=== PATIENT | male | born 1935 | race Caucasian/White ===

== ENCOUNTER 2017-12-28 12:37 | Observation (INO) | payer OTHER ==
[~2017-12-28] VITALS: Ht 157.5 cm; Wt 72.1 kg
[~2017-12-28 12:37] MED LIST: LEVO.1 PO
[2017-12-28 12:42] VITALS: BP 83/53; PULSE 101; RESP 18; TEMP 98.6; O2SAT 94
[2017-12-28] MEDS ORDERED: SODIUM CHLOR 0.9% 1000 ML INJ 1,000 ML IV SCH (13:03)
[2017-12-28] MEDS ORDERED: TAMS0.4C4 (13:04)
[2017-12-28 13:07] VITALS: BP 117/78; PULSE 92; RESP 16; O2SAT 96
--- NOTE | 2017-12-28 13:19 | PD ---
HPI Chief Complaint: GI Complaint Time Seen by Provider: 12:55 Travel History International Travel<30 days: No Contact w/Intl Traveler<30days: No Traveled to known affect area: No History of Present Illness HPI Patient presents to the emergency department with diarrhea 15 days. States that he took one Imodium last week but that did not help. Doctor is on vacation at the primary care appointment tomorrow at noon. States that he had diffuse abdominal pain and bright red blood in stool 2 approximately one half hour ago. New onset. Denies fever, chills, nausea, vomiting, chest pain, hematuria, shortness of breath, dizziness, but does report feeling weak at rest and on exertion. He denies taking aspirin or blood thinner, but states that he takes 200 mg ibuprofen once a week with the last dose yesterday. PFSH Past Medical History Medical History: Denies Significant Hx Diminished Hearing: No Immunizations Current: Yes Tetanus Vaccination: < 5 Years Past Surgical History Appendectomy: Yes Tonsillectomy: Yes Other Surgery: Yes ("NOT TO HAVE KIDS") Social History Alcohol Use: Yes (Occasional) Tobacco Use: No Substance Use: No Allergies-Medications (Allergen,Severity, Reaction): Coded Allergies: codeine (Unverified Allergy, Intermediate, Pt unsure of reaction, 12/28/17) Reported Meds & Prescriptions Reported Meds & Active Scripts Active Reported Tamsulosin (Tamsulosin HCl) 0.4 Mg Cap 0.4 Mg HS Synthroid (Levothyroxine Sodium) 100 Mcg Tab 100 Mcg PO DAILY Review of Systems Except as stated in HPI: all other systems reviewed are Neg Physical Exam Narrative GENERAL: Acute distress. SKIN: Focused skin assessment warm/dry. HEAD: Atraumatic. Normocephalic. EYES: Pupils equal and round. No scleral icterus. No injection or drainage. ENT: No nasal bleeding or discharge. Mucous membranes pink and moist. NECK: Trachea midline. No JVD. CARDIOVASCULAR: Regular rate and rhythm. No murmur appreciated. RESPIRATORY: No accessory muscle use. Clear to auscultation. Breath sounds equal bilaterally. GASTROINTESTINAL: Abdomen soft, non-tender, nondistended. Hepatic and splenic margins not palpable. Rectal:No stool, the patient did bring sample of his bloody stool with him which showed brown stool with bright red blood MUSCULOSKELETAL: No obvious deformities. No clubbing. No cyanosis. No edema. NEUROLOGICAL: Awake and alert. No obvious cranial nerve deficits. Motor grossly within normal limits. Normal speech. PSYCHIATRIC: Appropriate mood and affect; insight and judgment normal. Data Data Last Documented VS Vital Signs Date Time Temp Pulse Resp B/P (MAP) Pulse Ox O2 Delivery O2 Flow Rate FiO2 12/28/17 13:45 78 18 127/73 (91) 81 18 115/65 (82) 89 18 113/68 (83) 12/28/17 13:07 96 Room Air 12/28/17 12:42 98.6 Orders Orders Complete Blood Count With Diff (12/28/17 13:03) Comprehensive Metabolic Panel (12/28/17 13:03) Prothrombin Time / Inr (Pt) (12/28/17 13:03) Act Partial Throm Time (Ptt) (12/28/17 13:03) Type And Screen (12/28/17 13:03) Ecg Monitoring (12/28/17 13:03) Iv Access Insert/Monitor (12/28/17 13:03) Orthostatic Vital Signs (12/28/17 13:03) Oximetry (12/28/17 13:03) Sodium Chlor 0.9% 1000 Ml Inj (Ns 1000 M (12/28/17 13:03) Ct Abd/Pel W Iv Contrast(Rout) (12/28/17 13:03) Iohexol 350 Inj (Omnipaque 350 Inj) (12/28/17 14:01) Metronidazole 500 Mg Inj (Flagyl 500 Mg (12/28/17 14:45) Ciprofloxacin 400 Mg Premix (Cipro 400 M (12/28/17 14:45) Admit Order (Ed Use Only) (12/28/17 14:39) Labs Laboratory Tests Test 12/28/17 13:10 White Blood Count 6.9 TH/MM3 Red Blood Count 4.58 MIL/MM3 Hemoglobin 15.0 GM/DL Hematocrit 44.7 % Mean Corpuscular Volume 97.5 FL Mean Corpuscular Hemoglobin 32.7 PG Mean Corpuscular Hemoglobin Concent 33.5 % Red Cell Distribution Width 12.2 % Platelet Count 292 TH/MM3 Mean Platelet Volume 7.6 FL Neutrophils (%) (Auto) 55.8 % Lymphocytes (%) (Auto) 25.8 % Monocytes (%) (Auto) 14.1 % Eosinophils (%) (Auto) 2.6 % Basophils (%) (Auto) 1.7 % Neutrophils # (Auto) 3.8 TH/MM3 Lymphocytes # (Auto) 1.8 TH/MM3 Monocytes # (Auto) 1.0 TH/MM3 Eosinophils # (Auto) 0.2 TH/MM3 Basophils # (Auto) 0.1 TH/MM3 CBC Comment DIFF FINAL Differential Comment Prothrombin Time 10.8 SEC Prothromb Time International Ratio 1.1 RATIO Activated Partial Thromboplast Time 27.5 SEC Blood Urea Nitrogen 10 MG/DL Creatinine 0.88 MG/DL Random Glucose 104 MG/DL Total Protein 7.0 GM/DL Albumin 3.0 GM/DL Calcium Level 8.4 MG/DL Alkaline Phosphatase 60 U/L Aspartate Amino Transf (AST/SGOT) 14 U/L Alanine Aminotransferase (ALT/SGPT) 16 U/L Total Bilirubin 0.4 MG/DL Sodium Level 139 MEQ/L Potassium Level 3.8 MEQ/L Chloride Level 105 MEQ/L Carbon Dioxide Level 27.0 MEQ/L Anion Gap 7 MEQ/L Estimat Glomerular Filtration Rate 83 ML/MIN [facility] Medical Decision Making Medical Screen Exam Complete: Yes Emergency Medical Condition: Yes Interpretation(s) Labs: CBC/coag wnl; Last Impressions Abdomen/Pelvis CT 12/28/17 1303 Signed Impressions: CONCLUSION: 1. Prominent filling defect within the base of the bladder likely related to e nlarged prostate gland versus less likely mass. 2. Diffuse wall thickening throughout the large bowel consistent with diffuse colitis. No perforation or abscess. 3. Right renal cyst. Differential Diagnosis Diverticulitis, diverticulosis, AVM/angiodysplasia, colon cancer, UGIB, polyps, infectious/inflammatory diarrhea Narrative Course Patient presents to the emergency department with diffuse abdominal pain and bloody stool and history of diarrhea. Patient placed on a cardiac specialist, IV access obtained, labs/CT abdomen pelvis/orthostats/IV fluids ordered. 1435: Cipro 400mg IV and flagyl 500mg IV. 1440: Antibiotics canceled per admission team request. Diagnosis Primary Impression: Colitis Admitting Information Admitting Physician Requests: Observation Condition: Stable Candie Sullivan MD Dec 28, 2017 13:19
[2017-12-28 13:20] LABS: AUTOMATED NEUTROPHIL # 3.8 TH/MM3 (1.8-7.7); BASOPHIL # 0.1 TH/MM3 (0-0.2); BASOPHIL % 1.7 % (0.0-2.0); EOSINOPHIL # 0.2 TH/MM3 (0-0.4); EOSINOPHIL % 2.6 % (0.0-4.0); HEMATOCRIT 44.7 % (39.0-51.0); LYMPH % 25.8 % (9.0-44.0); LYMPHOCYTE # 1.8 TH/MM3 (1.0-4.8); MEAN CELL VOLUME 97.5 FL (80.0-100.0); MEAN CORPUSCULAR HEMOGLOBIN 32.7 PG (27.0-34.0); MEAN CORPUSCULAR HGB CONC 33.5 % (32.0-36.0); MEAN PLATELET VOLUME 7.6 FL (7.0-11.0); MONO % 14.1 % (0.0-8.0); NEUT % 55.8 % (16.0-70.0); PLATELET COUNT 292 TH/MM3 (150-450); RED BLOOD COUNT 4.58 MIL/MM3 (4.50-5.90); RED CELL DISTRIBUTION WIDTH 12.2 % (11.6-17.2); WHITE BLOOD COUNT 6.9 TH/MM3 (4.0-11.0)
[2017-12-28 13:29] LABS: CHLORIDE 105 MEQ/L (98-107); SODIUM (NA) 139 MEQ/L (136-145)
[2017-12-28 13:32] LABS: BLOOD UREA NITROGEN 10 MG/DL (7-18); CALCIUM 8.4 MG/DL (8.5-10.1); GLUCOSE,RANDOM 104 MG/DL (74-106)
[2017-12-28 13:34] LABS: INTERNATIONAL NORMALIZED RATIO 1.1 RATIO; PROTHROMBIN TIME - PATIENT 10.8 SEC (9.8-11.6)
[2017-12-28 13:35] LABS: ALT (GPT) 16 U/L (12-78); AST (GOT) 14 U/L (15-37); CREATININE 0.88 MG/DL (0.60-1.30); GLOMERULAR FILTRATION RATE 83 ML/MIN (>89)
[2017-12-28 13:37] LABS: TOTAL BILIRUBIN ADULT 0.4 MG/DL (0.2-1.0)
[2017-12-28 13:38] LABS: ALKALINE PHOSPHATASE 60 U/L (45-117)
[2017-12-28 13:45] VITALS: BP_SYST 113; BP_SYST 115; BP_SYST 127; BP_DIAS 65; BP_DIAS 68; BP_DIAS 73; RESP 18
[2017-12-28] MEDS ORDERED: IOHEXOL 350 MG/ML 10 ML VIAL (for RAD DIAG) IVCONTRAST ONE (14:01)
--- NOTE | 2017-12-28 14:11 | RADRPT ---
EXAM DATE: 12/28/2017 2:06 PM EDT AGE/SEX: 82 years / Male INDICATIONS: Diarrhea and lower abdominal pain.. CLINICAL DATA: This is the patient's initial encounter. Patient reports that signs and symptoms have been present for 2 weeks and indicates a pain score of 0/10. MEDICAL/SURGICAL HISTORY: None. Tonsillectomy. Appendectomy. Herniated disc repair. ORAL CONTRAST: No oral contrast ingested. RADIATION DOSE: 9.80 CTDI (mGy) COMPARISON: No prior exams available for comparison. TECHNIQUE: Multiple contiguous axial images were obtained through the abdomen and pelvis following b olus infusion of 85 ml Omnipaque 350 (iohexol) nonionic water-soluble contrast as a single exam dos e. No oral contrast ingested. Using automated exposure control and adjustment of the mA and/or kV ac cording to patient size, radiation dose was kept as low as reasonably achievable to obtain optimal di agnostic quality images. DICOM format image data is available electronically for review and comparis on. FINDINGS: Lower Lungs: The visualized lower lungs are clear. Liver: The liver has a homogeneous density without space-occupying lesion. There is no dilation of th e biliary tree. Spleen: Homogeneous density without enlargement. Pancreas: Unremarkable without mass or calcification. There is a small benign fatty lesion within th e distal pancreatic body Kidneys: Normal in size and shape. No evidence of mass or hydronephrosis. Right renal cyst. Adrenal Glands: Unremarkable. Aorta: The aorta and proximal iliac vessels are grossly unremarkable without aneurysmal dilation. Bowel/Mesentery: Diffuse wall thickening throughout the colon consistent with colitis. No significan t inflammatory changes. No perforation or abscess. Abdominal Wall: Intact. Retroperitoneum: No evidence of adenopathy in the retrocrural, para-aortic, or deep pelvic regions. Bladder: Contours are smooth. Filling defect within the base of the bladder. Reproductive Organs: Enlarged prostate gland. The prostate does protrude into the base of the bladde r. Inguinal: The inguinal region is unremarkable without evidence of adenopathy. Bony Structures: Prominent degenerative changes lumbar spine and both hips. CONCLUSION: 1. Prominent filling defect within the base of the bladder likely related to enlarged prostate gland versus less likely mass. 2. Diffuse wall thickening throughout the large bowel consistent with diffuse colitis. No perforatio n or abscess. 3. Right renal cyst. Electronically signed by: Jake Apodaca MD 12/28/2017 2:10 PM EDT
[2017-12-28] MEDS ORDERED: metroNIDAZOLE 500 MG INJ 100 ML IV ONE (14:45)
[2017-12-28] MEDS ORDERED: LACTULOSE SYRUP 20 GM/30 ML CUP PO PRN (14:45)
[2017-12-28] MEDS ORDERED: CIPROFLOXACIN 400 MG PREMIX 200 ML IV ONE (14:45)
[2017-12-28] MEDS ORDERED: ACETAMINOPHEN 325 MG TAB PO PRN (14:45)
[2017-12-28] MEDS ORDERED: NALOXONE HCL 0.4 MG/ML AMP IV PUSH PRN (14:45)
[2017-12-28] MEDS ORDERED: SENNOSIDES 8.6 MG TAB PO PRN (14:45)
[2017-12-28] MEDS ORDERED: BISACODYL 10 MG SUPP RECTAL PRN (14:45)
[2017-12-28] MEDS ORDERED: SODIUM CHLORIDE 0.9% FLUSH 10 ML FLUSH IV FLUSH PRN (14:45)
[2017-12-28] MEDS ORDERED: MAGNESIUM HYDROXIDE SUSP 30 ML CUP PO PRN (14:45)
--- NOTE | 2017-12-28 15:13 | HHI.HP ---
HPI Service [facility] Primary Care Physician Tera Lopez MD Admission Diagnosis colitis, rectal bleed Diagnoses: Chief Complaint: Diarrhea, rectal bleed. Travel History International Travel<30 Days: No Contact w/Intl Traveler <30 Da: No Traveled to Known Affected Are: No History of Present Illness Mr. Rockwell is a pleasant 82 year old male with a history of hypothyroidism who presents to the emergency department due to bright red blood in stool 2 approximately one half hour prior to coming to the hospital on 2017. He has been having diarrhea for the two weeks prior to this admission as well. He used Imodium which did not relieve his symptoms.He did not have any abdominal pain, nausea or vomiting. He has noticed significant decrease in appetite. He denies any chest pain, shortness of breath, fever or chills. He denies any dysuria or hematuria. Patient takes 200 mg of ibuprofen once a week. Review of Systems Except as stated in HPI: all other systems reviewed are Neg Past Family Social History Past Medical History Hypothyroidism, BPH Past Surgical History Appendectomy, tonsillectomy Reported Medications Tamsulosin (Tamsulosin HCl) 0.4 Mg Cap 0.4 Mg HS Synthroid (Levothyroxine Sodium) 100 Mcg Tab 100 Mcg PO DAILY Allergies: Coded Allergies: codeine (Unverified Allergy, Intermediate, Pt unsure of reaction, 12/28/17) Family History Mother at age 106, Dad in his 80s. Social History Drinks alcohol occasionally. Denies using tobacco or illicit drugs. Physical Exam Vital Signs Vital Signs Date Time Temp Pulse Resp B/P (MAP) Pulse Ox O2 Delivery O2 Flow Rate FiO2 12/28/17 13:45 78 18 127/73 (91) 81 18 115/65 (82) 89 18 113/68 (83) 12/28/17 13:07 92 16 117/78 (91) 96 Room Air 12/28/17 13:07 16 96 Room Air 12/28/17 12:42 98.6 101 18 83/53 (63) 94 Physical Exam GENERAL: This is a well-nourished, well-developed patient, in no apparent distress. SKIN: No rashes, ecchymoses or lesions. Warm and dry. HEAD: Atraumatic. Normocephalic. No temporal or scalp tenderness. EYES: Pupils equal round and reactive. No injection or drainage. ENT: Nose without bleeding, purulent drainage or septal hematoma. Airway patent. NECK: Trachea midline. No lymphadenopathy. Supple, nontender, no meningeal signs. CARDIOVASCULAR: Regular rate and rhythm without murmurs, gallops, or rubs. No JVD. RESPIRATORY: Clear to auscultation. Breath sounds equal bilaterally. No wheezes , rales, or rhonchi. GASTROINTESTINAL: Abdomen soft, non-tender, nondistended. No guarding. MUSCULOSKELETAL: Extremities without clubbing, cyanosis, or edema. NEUROLOGICAL: Awake and alert. Cranial nerves II through XII intact. No focal neurological deficits. Normal speech. Laboratory Laboratory Tests Test 12/28/17 13:10 White Blood Count 6.9 Red Blood Count 4.58 Hemoglobin 15.0 Hematocrit 44.7 Mean Corpuscular Volume 97.5 Mean Corpuscular Hemoglobin 32.7 Mean Corpuscular Hemoglobin Concent 33.5 Red Cell Distribution Width 12.2 Platelet Count 292 Mean Platelet Volume 7.6 Neutrophils (%) (Auto) 55.8 Lymphocytes (%) (Auto) 25.8 Monocytes (%) (Auto) 14.1 Eosinophils (%) (Auto) 2.6 Basophils (%) (Auto) 1.7 Neutrophils # (Auto) 3.8 Lymphocytes # (Auto) 1.8 Monocytes # (Auto) 1.0 Eosinophils # (Auto) 0.2 Basophils # (Auto) 0.1 CBC Comment DIFF FINAL Differential Comment Prothrombin Time 10.8 Prothromb Time International Ratio 1.1 Activated Partial Thromboplast Time 27.5 Blood Urea Nitrogen 10 Creatinine 0.88 Random Glucose 104 Total Protein 7.0 Albumin 3.0 Calcium Level 8.4 Alkaline Phosphatase 60 Aspartate Amino Transf (AST/SGOT) 14 Alanine Aminotransferase (ALT/SGPT) 16 Total Bilirubin 0.4 Sodium Level 139 Potassium Level 3.8 Chloride Level 105 Carbon Dioxide Level 27.0 Anion Gap 7 Estimat Glomerular Filtration Rate 83 Result Diagram: 12/28/17 1310 12/28/17 1310 Imaging Last Impressions Abdomen/Pelvis CT 12/28/17 1303 Signed Impressions: CONCLUSION: 1. Prominent filling defect within the base of the bladder likely related to e nlarged prostate gland versus less likely mass. 2. Diffuse wall thickening throughout the large bowel consistent with diffuse colitis. No perforation or abscess. 3. Right renal cyst. Caprini VTE Risk Assessment Caprini VTE Risk Assessment: Mod/High Risk (score >= 2) Caprini Risk Assessment Model Point Value = 1 Point Value = 2 Point Value = 3 Point Value = 5 Age 41-60 Minor surgery BMI > 25 kg/m2 Swollen legs Varicose veins or History of unexplained or recurrent spontaneous Oral contraceptives or hormone replacement Sepsis (< 1 month) Serious lung disease, including pneumonia (< 1 month) Abnormal pulmonary function Acute myocardial infarction Congestive heart failure (< 1 month) History of inflammatory bowel disease Medical patient at bed rest Age 61-74 Arthroscopic surgery Major open surgery (> 45 min) Laparoscopic surgery (> 45 min) Malignancy Confined to bed (> 72 hours) Immobilizing plaster cast Central venous access Age >= 75 History of VTE Family history of VTE Factor V Leiden Prothrombin [id number] Lupus anticoagulant Anticardiolipin antibodies Elevated serum homocysteine Heparin-induced thrombocytopenia Other congenital or acquired thrombophilia Stroke (< 1 month) Elective arthroplasty Hip, pelvis, or leg fracture Acute spinal cord injury (< 1 month) Prophylaxis Regimen Total Risk Factor Score Risk Level Prophylaxis Regimen 0-1 Low Early ambulation 2 Moderate Order ONE of the following: *Sequential Compression Device (SCD) *Heparin 5000 units SQ BID 3-4 Higher Order ONE of the following medications: *Heparin 5000 units SQ TID *Enoxaparin/Lovenox 40 mg SQ daily (WT < 150 kg, CrCl > 30 mL/min) *Enoxaparin/Lovenox 30 mg SQ daily (WT < 150 kg, CrCl > 10-29 mL/min) *Enoxaparin/Lovenox 30 mg SQ BID (WT < 150 kg, CrCl > 30 mL/min) AND/OR *Sequential Compression Device (SCD) 5 or more Highest Order ONE of the following medications: *Heparin 5000 units SQ TID (Preferred with Epidurals) *Enoxaparin/Lovenox 40 mg SQ daily (WT < 150 kg, CrCl > 30 mL/min) *Enoxaparin/Lovenox 30 mg SQ daily (WT < 150 kg, CrCl > 10-29 mL/min) *Enoxaparin/Lovenox 30 mg SQ BID (WT < 150 kg, CrCl > 30 mL/min) AND *Sequential Compression Device (SCD) Assessment and Plan Problem List: (1) Rectal bleed ICD Code: K62.5 - Hemorrhage of anus and rectum (2) Colitis ICD Code: K52.9 - Noninfective gastroenteritis and colitis, unspecified Status: Acute (3) Hypothyroidism ICD Code: E03.9 - Hypothyroidism, unspecified Assessment and Plan Mr Rockwell is a pleasant 82-year-old male with a history of hypothyroidism who presents to the duration of diarrhea and 1 day duration of rectal bleed. Patient denies any abdominal pain, fever or chills. CT abdomen pelvis indicated colitis. GI was consulted. Acute diarrhea Colitis Rectal bleed -Etiology unknown. GI evaluated patient and plans to perform colonoscopy in the morning. -We will check H&H in the morning. -Hgb 15.0 on arrival Hypothyroidism BPH -Continue tamsulosin 0.4 mg daily and levothyroxine 100 mcg p.o. daily. Full code. SCDs. Zach Arvizu DO Dec 28, 2017 15:13
[2017-12-28 15:47] VITALS: BP 113/70; PULSE 74; RESP 16; O2SAT 93
[2017-12-28 18:28] VITALS: BP 124/73; PULSE 76; RESP 18; TEMP 98.7
[2017-12-28] MEDS ORDERED: MAGNESIUM CITRATE SOLN 300 ML BTL PO ONE (19:15)
[2017-12-28] MEDS ORDERED: BISACODYL EC 5 MG TABEC PO ONE (19:15)
[2017-12-28] MEDS: SODIUM CHLORIDE 0.9% FLUSH 10 ML FLUSH IV FLUSH SCH (19:50)
[2017-12-28 20:00] VITALS: BP 119/69; PULSE 84; PULSE 90; RESP 23; TEMP 98.6; O2SAT 92
--- NOTE | 2017-12-28 21:30 | MB ---
cc: Maria Victoria Sandy MD DATE: 12/28/2017 REFERRING PHYSICIAN: Dr. Arvizu DATE OF : 1935 REASON FOR CONSULTATION: Diarrhea, GI bleed. HISTORY OF PRESENT ILLNESS: Mr. Rockwell is a very pleasant 82-year-old gentleman with no medical problems. He came to the emergency room with complaints of bright red blood per rectum since last night, the patient had been having diarrhea for the last 15 days after eating fried chicken and blueberries with yogurt. He states since then he had diarrhea on a daily basis. He never had this kind of issue before. Denies any recent travel or use of antibiotics. His last colonoscopy was 40 years ago, which according to him was normal, but he does report having stool studies every year which were normal. PAST MEDICAL HISTORY: Hypothyroidism, BPH. PAST SURGICAL HISTORY: Appendectomy, tonsillectomy. MEDICATIONS: Tamsulosin and Synthroid. The patient was given metronidazole, Cipro and Tylenol. ALLERGIES: CODEINE. SOCIAL HISTORY: Drinks occasionally. Denies any drug use. REVIEW OF SYSTEMS: CONSTITUTIONAL: He denies any fever, chills, weight loss or weight gain. ENT: No alteration of baseline hearing or visual acuity. PULMONARY: Denies any chest pain, shortness of breath. GASTROINTESTINAL: As above. GENITOURINARY: Denies dysuria or hematuria. HEMATOLOGICAL: No history of anemia or bleeding disorder. SKIN: No alteration of baseline skin lesion. NEUROLOGIC: No history of TIA or CVA kind of symptoms. PHYSICAL EXAMINATION: GENERAL: On clinical exam, he is sitting comfortably in bed in no acute distress. VITAL SIGNS: His blood pressure is 124/73, heart rate is 76. HEENT: PERRLA. NECK: No JVD. No lymphadenopathy. CHEST: Clear to auscultation and palpation. CARDIOVASCULAR: S1, S2. No murmur. ABDOMEN: Soft, nontender. Bowel sounds are present. CENTRAL NERVOUS SYSTEM: Awake, alert, oriented x3. No focal signs identified. LABORATORY DATA: His hemoglobin 15, white count 6.9, platelets 292. His chemistry is essentially normal. IMAGING STUDIES: The patient had an abdominal CT which showed enlarged prostate, possible mass in the bladder, diffuse wall thickening throughout the large bowel, consistent with diffuse colitis. ASSESSMENT AND PLAN: Mr. Rockwell is a very pleasant 82-year-old gentleman admitted to the hospital with a gastrointestinal bleed, CT suggesting colitis. Differential includes inflammatory bowel disease Clostridium difficile colitis or other types of infectious colitis. RECOMMENDATIONS: Clear liquid diet. Colonoscopy in the morning. Stool studies. Supportive care. Further recommendation will depend on the patient's clinical status and the above results. Thank you again. We Will continue to follow the patient along with you. Maria Victoria Sandy MD BSB/SB , 09:09 PM , 09:29 PM
[2017-12-29] VITALS (8 sets, daily range): BP systolic 106–132; BP diastolic 62–80; PULSE 64–86; RESP 18–25; TEMP 97.5–98.8; O2SAT 92–94
[2017-12-29 04:45] LABS: HEMATOCRIT 41.8 % (39.0-51.0); HEMOGLOBIN 14.3 GM/DL (13.0-17.0)
[2017-12-29] MEDS ORDERED: LEVOTHYROXINE SODIUM 100 MCG TAB PO SCH (07:00)
[2017-12-29] MEDS: SODIUM CHLORIDE 0.9% FLUSH 10 ML FLUSH IV FLUSH SCH (09:00)
--- NOTE | 2017-12-29 14:57 | HHI.PR ---
Subjective Remarks Follow up for Colitis, rectal bleed. No further episodes. No CP, SOB, fever, chills. Objective Vitals Vital Signs Date Time Temp Pulse Resp B/P (MAP) Pulse Ox O2 Delivery O2 Flow Rate FiO2 12/29/17 11:57 98.4 66 21 117/66 (83) 92 12/29/17 08:35 98.7 68 18 106/62 (77) 94 12/29/17 07:00 64 12/29/17 04:00 97.9 86 22 124/73 (90) 93 12/29/17 04:00 86 12/29/17 00:00 72 12/29/17 00:00 98.8 72 22 107/71 (83) 93 12/28/17 20:00 98.6 90 23 119/69 (86) 92 12/28/17 20:00 84 12/28/17 18:28 98.7 76 18 124/73 (90) 12/28/17 17:58 72 16 93 12/28/17 15:47 74 16 113/70 (84) 93 Room Air I/O 12/28/17 12/28/17 12/28/17 12/29/17 12/29/17 12/29/17 06:59 14:59 22:59 06:59 14:59 22:59 Intake Total 1000 ml 480 ml Output Total 400 ml Balance 1000 ml -400 ml 480 ml Intake Oral 480 ml IV Total 1000 ml Output Urine Total 400 ml # Voids 4 # Bowel Movements 1 Result Diagram: 12/29/17 0433 12/28/17 1310 Imaging Last Impressions Abdomen/Pelvis CT 12/28/17 1303 Signed Impressions: CONCLUSION: 1. Prominent filling defect within the base of the bladder likely related to e nlarged prostate gland versus less likely mass. 2. Diffuse wall thickening throughout the large bowel consistent with diffuse colitis. No perforation or abscess. 3. Right renal cyst. Objective Remarks GENERAL: Alert, NAD. SKIN: Warm and dry. HEAD: Normocephalic. EYES: No scleral icterus. No injection or drainage. NECK: Supple, trachea midline. No JVD or lymphadenopathy. CARDIOVASCULAR: Regular rate and rhythm without murmurs, gallops, or rubs. RESPIRATORY: Breath sounds equal bilaterally. No accessory muscle use. GASTROINTESTINAL: Abdomen soft, non-tender, nondistended. MUSCULOSKELETAL: No cyanosis, or edema. BACK: Nontender without obvious deformity. No CVA tenderness. Procedures None. A/P Problem List: (1) Rectal bleed ICD Code: K62.5 - Hemorrhage of anus and rectum (2) Colitis ICD Code: K52.9 - Noninfective gastroenteritis and colitis, unspecified Status: Acute (3) Hypothyroidism ICD Code: E03.9 - Hypothyroidism, unspecified Assessment and Plan Mr Rockwell is a pleasant 82-year-old male with a history of hypothyroidism who presents to the duration of diarrhea and 1 day duration of rectal bleed. Patient denies any abdominal pain, fever or chills. CT abdomen pelvis indicated colitis. GI was consulted. Acute diarrhea Colitis Rectal bleed -Etiology unknown. GI evaluated patient and plans to perform colonoscopy this afternoon. -Hgb remains stable. Hgb 15.0 --> 14.3. Hypothyroidism BPH -Continue tamsulosin 0.4 mg daily and levothyroxine 100 mcg p.o. daily. Full code. SCDs. Zach Arvizu DO Dec 29, 2017 14:57
--- NOTE | 2017-12-29 15:58 | GIPROC ---
[facility] [address] [place] [address], [id number] COLONOSCOPY PROCEDURE REPORT EXAM DATE: 12/29/2017 PATIENT NAME: Caterina Rockwell MR #: [id number] BIRTHDATE: 1935 ENDOSCOPIST: Maria Victoria Sandy MD ORDER #: [id number] CALCULUS PROFESSOR: Joseph Crook STATUS: inpatient INDICATIONS: The patient is a 82 yr old male here for a colonoscopy due to diarrhea, colitis PROCEDURE PERFORMED: Colonoscopy with biopsy MEDICATIONS: None and Per Anesthesia. PREP QUALITY: fair PREP TYPE:Other: ESTIMATED BLOOD LOSS: None CONSENT: The patient understands the risks and benefits of the procedure and understands that these risks include, but are not limited to: sedation, allergic reaction, infection, perforation and/or bleeding. Alternative means of evaluation and treatment include, among others: physical exam, x-rays, and/or surgical intervention. The patient elects to proceed with this endoscopic procedure. medical equipment was checked for proper function. Hand hygiene and appropriate measures for infection prevention was taken. After the risks, benefits and alternatives of the procedure were thoroughly explained, Informed consent was verified, confirmed and timeout was successfully executed by the treatment team. A digital exam revealed external hemorrhoids and revealed an enlarged prostate The Pentax [id number] endoscope was introduced through the anus and advanced to the cecum, which was identified by both the appendix and ileocecal valve. The instrument was then slowly withdrawn as the colon was fully examined. COLON FINDINGS: Diverticulosis sigmoid,descending random biopsies from ascending and descending. Retroflexed views revealed internal hemorrhoids and Retroflexed views revealed small internal hemorrhoids The scope was then completely withdrawn from the patient and the procedure terminated. PROCEDURE WITHDRAWAL TIME:6minutes ADVERSE EVENTS: There were no complications. IMPRESSIONS: 1. Diverticulosis sigmoid,descending random biopsies from ascending and descending 2. Retroflexed views revealed internal hemorrhoids 3. Retroflexed views revealed small internal hemorrhoids 4. Revealed external hemorrhoids 5. Revealed an enlarged prostate RECOMMENDATIONS: 1. Await biopsy results. Biopsy results will not be ready for 7-10 days. If you don't hear from us in two weeks, call our office for results. 2. Probiotics from any [employer] or health food store 3. Ok to dc home from [facility] 800 mg po tid RECALL: Return 6 months Colonoscopy Maria Victoria Sandy MD eSigned: Maria Victoria Sandy MD 12/29/2017 3:58 PM cc: PATIENT NAME: Caterina Rockwell MR#: [id number]
[2017-12-29] MEDS ORDERED: ASAC800T PO ×2 (17:20→17:41)
[2017-12-29] MEDS ORDERED: TAMSULOSIN HCL 0.4 MG CAP PO SCH (21:00)
[2017-12-29] MEDS ORDERED: MESALAMINE HD 800 MG DELAYED RELEASE TAB PO SCH (22:00)
--- NOTE | 2017-12-29 23:01 | EKG ---
Date Performed: 12/28/2017 Time Performed: 23:47:33 PTAGE: 82 years EKG: Sinus rhythm LEFT ANTERIOR FASCICULAR BLOCK ABNORMAL ECG NO PREVIOUS TRACING DOCTOR: Austyn Sherman Interpretating Date/Time 12/29/2017 23:00:15
== END 2017-12-29 18:20 | disposition home or self-care (01) ==
LOC: PHED 12:37 → PHEDA 14:56 → PHICU 18:54
PROVIDERS: ADMIT Hospitalist; ATTEND Hospitalist
DX: K62.5 Hemorrhage of anus and rectum (principal); K52.9 Noninfective gastroenteritis and colitis, unspecified; K57.90 Diverticulosis of intestine, part unspecified, without perforation or abscess without bleeding; K64.4 Residual hemorrhoidal skin tags; K64.8 Other hemorrhoids; E03.9 Hypothyroidism, unspecified; N40.0 Benign prostatic hyperplasia without lower urinary tract symptoms
CPT/HCPCS: 00811; 45380; 74177; 80053; 85014; 85018; 85025; 85610; 85730; 86850; 86900; 86901; 87328; 87329; 87493; 87506; 88305; 93005; 96360; 99285; G0378; J7030; Q9967